=== PATIENT | male | born 1950 | race Caucasian/White ===

== ENCOUNTER 2021-11-13 13:04 | Day surgery (SDC) | payer BC, MEDICARE ==
[~2021-11-13] VITALS: Ht 177.8 cm; Wt 95.9 kg
[~2021-11-13 13:04] MED LIST: ALLEGRA ALLERG180 MG PO; ALLOPURINOL100 MG PO; ALLOPURINOL300 MG PO; AMLODIPINE BESYL5 MG PO; ASPIRIN EC81 MG PO; BENICAR20 MG PO; COREG25 MG PO; CRESTOR40 MG PO; PULMICORT0.5 MG/2 M INH; VITAMIN D32000 UNIT PO
--- NOTE | 2021-11-13 14:47 | NUR ---
1439 PATIENT GIVEN 4 MG IV ZOFRAN PRE OP. PER MD VERBAL ORDER. PATIENT NAUSEATED IN PRIOR PROCEDURES. PREMEDICATING HAS BEEN HELPFUL.
--- NOTE | 2021-11-13 15:17 | NUR ---
11/13/21 1517 Sheets,Neeru 1514 PT ARRIVED TO PACU ON RA, VSS. PT WAKES EASILY TO VERBAL STIMULI AND IS ENCOURAGED TO PASS GAS/AIR.
--- NOTE | 2021-11-14 11:19 | OR ---
[facility] [address], [place] [address] Signed DATE OF OPERATION: 11/13/2021 SURGEON: Winifred Shannon MD PREOPERATIVE DIAGNOSIS: History of polyps (2013). POSTOPERATIVE DIAGNOSES: 1. Diverticulosis. 2. Polyps x4. PROCEDURE: Total colonoscopy to cecum with cold snare polypectomy x2 and cold morcellation polypectomy x2. ANESTHESIA: Intravenous sedation with fentanyl 150 mcg, Versed 6 mg. 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 He is known to me from the past. He underwent colonoscopy in 2013, at which time he was found to have several tubular adenomas. He is symptom free, having no bleeding, diarrhea, or constipation. Has no family history of colon cancer. He understands the risks of surveillance colonoscopy, understands the risks of bleeding, infection, perforation, and other unforeseen complications. FINDINGS: The prep was good. Complete colonoscopy was undertaken at cecum. He had diverticulosis of the sigmoid and left colon. There were 4 polyps in total, one at the splenic flexure, two at the transverse colon and one in the right colon, all excised completely. DESCRIPTION OF PROCEDURE: The patient was brought to the endoscopy suite and placed in lateral decubitus position. Given intravenous sedation to the point of slurred speech and nystagmus with full cardiopulmonary monitoring. Digital rectal examination was normal. An Olympus video colonoscope was passed in the rectum and manipulated throughout the colon noting numerous diverticula of sigmoid and left colon. The scope was advanced to the right transverse colon, where 2 small polyps were noted. These were excised with cold morcellation technique. The scope was further advanced ultimately to the cecum. Electronically Signed By: WINIFRED SHANNON MD 11/14/21 1119 PATIENT NAME: KETTY OLSON OPERATIVE REPORT DATE OF : 46 REPORT #: [id number] PHYSICIAN: WINIFRED SHANNON MD PCP: [facility] REPORT IS CONFIDENTIAL AND NOT TO BE RELEASED WITHOUT AUTHORIZATION [facility] [address], [place] [address] Signed The ileocecal valve and appendiceal orifice were normal. Scope was withdrawn and the mid ascending colon was a sessile polyp. This was excised with cold snare technique, although was small. The scope was withdrawn and the previously biopsied sites in the transverse colon were noted. They were hemostatic. Further withdrawal of scope showed a small sessile polyp in the splenic flexure area. This was excised with cold snare technique. Further withdrawal confirmed diverticula of the sigmoid and left colon. Retroflexed view of the rectum was normal. Scope was removed. The patient was taken to recovery room in good condition. CONCLUDING DIAGNOSES: 1. Polyps x4. 2. Diverticulosis. PLAN: Recommend repeat colonoscopy in 5 to 7 years, sooner if symptoms should occur. He will return to the ongoing care of CARMEN Mason. MD JOSELITO De Leon/LIZANDRO /[id number] cc: CARMEN Mason Copies: ~ Electronically Signed By: WINIFRED SHANNON MD 11/14/21 1119 PATIENT NAME: KETTY OLSON OPERATIVE REPORT DATE OF : 46 REPORT #: [id number] PHYSICIAN: WINIFRED SHANNON MD PCP: [facility] REPORT IS CONFIDENTIAL AND NOT TO BE RELEASED WITHOUT AUTHORIZATION
== END 2021-11-13 15:45 | disposition home or self-care (01) ==
LOC: OPS 13:04 → DS 13:04 → OPS 14:00
PROVIDERS: ATTEND Surgery
PROC: 0DBL8ZX Excision of Transverse Colon, Via Natural or Artificial Opening Endoscopic, Diagnostic (ICD-10-PCS; principal; 2021-11-13 14:00)
DX: Z12.11 Encounter for screening for malignant neoplasm of colon (principal); D12.2 Benign neoplasm of ascending colon; D12.3 Benign neoplasm of transverse colon; G47.33 Obstructive sleep apnea (adult) (pediatric); H50.9 Unspecified strabismus; I10 Essential (primary) hypertension; E78.00 Pure hypercholesterolemia, unspecified; M10.9 Gout, unspecified; K57.30 Diverticulosis of large intestine without perforation or abscess without bleeding
CPT/HCPCS: 99153; G0500; J2250; J2405; J3010; J7121